=== PATIENT | female | born 1940 | race Caucasian/White ===

== ENCOUNTER 2024-06-14 06:30 | Day surgery (SDC) | payer MEDICARE, OTHER ==
[2024-06-13 13:54] VITALS: BMI 29.7
[2024-06-14 07:12] LABS: Hematocrit 38.8 % (34.9-44.5); Hemoglobin 12.4 g/dL (12.0-15.5); Mean Corpuscular Hemoglobin 32.9 pg (27.0-33.0); Mean Corpuscular Volume 102.9 fL (81.6-98.3); Mean Platelet Volume 9.8 fL (7.4-10.4); Platelet Count 146 10x3/uL (150-450); RBC Distribution Width 14.7 % (11.5-14.5); Red Blood Cell (RBC) Count 3.77 10x6/uL (3.90-5.03); White Blood Cell (WBC) Count 4.8 10x3/uL (3.5-10.5)
[2024-06-14 07:26] LABS: Anion Gap 16 mmol/L (10-20); BUN (Urea Nitrogen) 26 mg/dL (9.8-20.1); Calc. Creatinine Clearance 61 mL/min (70-130); Calcium 9.7 mg/dL (7.8-10.44); Carbon Dioxide 27 mmol/L (23-31); Chloride 101 mmol/L (98-107); Estimated GFR 57; Glucose 117 mg/dL (83-110); Potassium 3.6 mmol/L (3.5-5.1); Sodium 140 mmol/L (136-145)
[2024-06-14] MEDS ORDERED: fentaNYL 50 mcg/mL 1 mL Vial ONE ×2 (08:26→09:41)
[2024-06-14] MEDS ORDERED: PROPOFOL 20 ML ONE (08:26)
[2024-06-14] MEDS ORDERED: Lidocaine 1% PF 5 ML VIAL ONE (08:27)
[2024-06-14] MEDS ORDERED: Ondansetron PF 4 MG/2 ML Vial ONE ×2 (08:27→09:26)
[2024-06-14] MEDS ORDERED: CEFAZOLIN 2 GM VIAL ONE (08:44)
[2024-06-14] MEDS ORDERED: Bupivacaine PF 0.5% 30 ML VIAL ONE (09:10)
[2024-06-14] MEDS ORDERED: Dexamethasone 4 mg/ml Vial ONE (09:26)
[2024-06-14] MEDS ORDERED: ePHEDrine Sulfate 50 MG/10 ML VIAL ONE (09:26)
[2024-06-14] MEDS ORDERED: Ketorolac Tromethamine 30 MG (1 mL) VIAL ONE (09:43)
[2024-06-14] MEDS ORDERED: HYDROcodone/Acetaminophen 5/325 mg Tablet ONE (11:16)
== END 2024-06-14 11:40 | disposition home or self-care (01) ==
LOC: CSHSDC 06:30
PROVIDERS: ATTEND Podiatrist Foot & Ankle Surgery
PROC: 0LNP0ZZ Release Left Lower Leg Tendon, Open Approach (ICD-10-PCS; principal; 2024-06-14)
DX: M20.12 Hallux valgus (acquired), left foot (principal); M24.875 Other specific joint derangements left foot, not elsewhere classified; S93.121A Dislocation of metatarsophalangeal joint of right great toe, initial encounter; M20.42 Other hammer toe(s) (acquired), left foot; I10 Essential (primary) hypertension; I48.91 Unspecified atrial fibrillation; E78.00 Pure hypercholesterolemia, unspecified; Z98.890 Other specified postprocedural states; Z91.040 Latex allergy status; Z79.899 Other long term (current) drug therapy; X58.XXXA Exposure to other specified factors, initial encounter
CPT/HCPCS: 28232 ×2; 28820; 80048; 85027; J0665; J1100; J1885; J2405; J2704; J3010; 36415